=== PATIENT | female | born 2000 | race Hispanic/Latino ===

== ENCOUNTER → 2022-09-18 13:31 | Outpatient (CLI) | payer OTHER, SELFPAY ==
[2022-09-18 14:59] LABS: HCG Quantitative /Beta subunit 122610 mIU/mL
== END ==
PROVIDERS: PCP Student in an Organized Health Care Education/Training Program; Referring Provider Obstetrics & Gynecology; Visit Provider Obstetrics & Gynecology
DX: O20.9 Hemorrhage in early pregnancy, unspecified (principal)
CPT/HCPCS: 36415; 84702

== ENCOUNTER → 2022-10-02 14:53 | Outpatient (CLI) | payer OTHER, SELFPAY ==
[2022-10-02 22:13] LABS: Urine N gonorrhoeae NOT DETECTED
[2022-10-02 22:16] LABS: Urine Chlamydia NOT DETECTED
== END ==
PROVIDERS: PCP Student in an Organized Health Care Education/Training Program; Visit Provider Obstetrics & Gynecology
DX: Z34.01 Encounter for supervision of normal first pregnancy, first trimester (principal); Z3A.09 9 weeks gestation of pregnancy
CPT/HCPCS: 87491; 87591

== ENCOUNTER → 2022-10-02 15:13 | Outpatient (CLI) | payer OTHER, SELFPAY ==
[2022-10-02 16:10] LABS: Add Manual Diff / Slide Review NO; Basophils Absolute Auto 0 /uL (0-100); Basophils Percent Auto 0.4 % (0-2); Eosinophils Absolute Auto 100 /uL (0-450); Eosinophils Percent Auto 1.2 % (2-4); Hematocrit 39.5 % (36-46); Hemoglobin 13.6 g/dL (12.0-16.0); Lymphocytes Absolute Auto 1200 /uL (1100-4500); Lymphocytes Percent Auto 20.7 % (25-40); Mean Corpuscular HGB Conc 34.5 % (30-36); Mean Corpuscular Hemoglobin 30.3 PG (26-34); Mean Corpuscular Volume 87.8 fL (80-100); Monocytes Absolute Auto 500 /uL (0-900); Monocytes Percent Auto 8.2 % (3-14); Neutrophils Absolute Auto 4000 /uL (1500-7000); Neutrophils Percent Auto 69.5 % (50-75); Platelet Count 234 X10^3/uL (150-400); Red Cell Distribution Width 12.5 % (11.6-14.8); White Blood Cell Count 5.7 X10^3/uL (4.5-11.0)
[2022-10-02 17:11] LABS: HCG Quantitative /Beta subunit 105490 mIU/mL
[2022-10-02 21:38] LABS: Hepatitis B Surface Antigen NEGATIVE s/c (NEGATIVE); Rubella Antibody IgG 12.4 IU/mL (>15)
[2022-10-02 21:59] LABS: HIV 1 & 2 Ab/Ag 4th Gen Combo NEGATIVE (NEGATIVE); Hep C Virus Ab w/Reflex Quant NEGATIVE s/c (NEGATIVE)
[2022-10-03 09:38] LABS: Varicella IgG Antibody <135 index (Immune >165)
[2022-10-04 11:09] LABS: RPR Screen Non Reactive (Non Reactive)
== END ==
PROVIDERS: PCP Student in an Organized Health Care Education/Training Program; Referring Provider Obstetrics & Gynecology; Visit Provider Obstetrics & Gynecology
DX: O20.9 Hemorrhage in early pregnancy, unspecified (principal); Z3A.09 9 weeks gestation of pregnancy
CPT/HCPCS: 36415; 80055; 84702; 86787; 86803; 86850; 86900; 86901; 87086; 87389; 87491; 87591

== ENCOUNTER → 2022-11-27 15:29 | Outpatient (CLI) | payer OTHER, SELFPAY ==
[2022-11-29 20:59] LABS: AFP Value 58.3 ng/mL (.); Gestational Age Ultrasound (.); Insulin Dep Diabetes No (.); OSBR Risk 1IN 2047 (.); Results Report (.); Test Results *Screen Negative* (.)
== END ==
PROVIDERS: PCP Student in an Organized Health Care Education/Training Program; Referring Provider Obstetrics & Gynecology; Visit Provider Obstetrics & Gynecology
DX: O20.9 Hemorrhage in early pregnancy, unspecified (principal); Z34.01 Encounter for supervision of normal first pregnancy, first trimester
CPT/HCPCS: 36415; 82105

== ENCOUNTER → 2022-12-13 13:59 | Outpatient (CLI) | payer OTHER, SELFPAY ==
--- NOTE | 2022-12-13 14:00 | DI.US.S_ITS ---
PROCEDURE: US OB >= 14 WEEKS FETUS INDICATIONS: ANATOMY OUTSIDE/PRIOR DATING DATA: Last menstrual period (LMP): July 26, 2022. LMP-based estimated date of delivery (ESTRELLITA): May 02, 2023. First dating scan (date and location): October 02, 2022. Estimated date of delivery (ESTRELLITA) from first dating scan: May 02, 2023 TECHNIQUE: Real-time scanning was performed of the fetus, with image documentation and biometric measurements. Endovaginal scanning: Not performed COMPARISON: None. FINDINGS: General: A single living intrauterine gestation is present. Presentation: Vertex Placenta: Placental position is posterior , without previa. Amniotic fluid index: 11.1 cm, normal range is 5-24 cm. Single deepest vertical pocket is 3.4 cm. heart rate: 1.49 beats per minute. Maternal cervical canal: 4.3 cm long. Normal lower limit is 2.5 cm. biometrics: Biparietal diameter: 4.6 cm, 20 weeks, 0 days Head circumference: 17.0 cm, 19 weeks, 4 days Abdominal circumference: 14.7 cm, 20 weeks, 0 days Femur length: 3.2 cm, 19 weeks, 6 days Clinically estimated gestational age: 20 weeks, 0 days Composite gestational age from present scan: 19 weeks, 6 days Anatomic survey: Neuro: Ventricles are non-dilated at less than 10 mm. Cisterna magna is normal at 3-11 mm. Cerebellum is normal in size and morphology. Nuchal skin fold: Normal at less than 6 mm between 14-21 weeks gestational age. Face: Nose and lips, facial profile are not visualized. Spine: No evidence for spina bifida. Heart: 4-chambered heart and ventricular outflow tracts are poorly characterized. Diaphragm: Diaphragm is intact. Stomach: Left-sided stomach is present. Kidneys: No hydronephrosis. Normal is less than 5 mm in 2nd trimester, less than 7 mm in 3rd trimester. Cord: 3-vessel cord has orthotopic insertion. Bladder: Normal in size. Extremities: All 4 extremities identified. IMPRESSION: 1. Single live intrauterine gestation with a composite gestational age of 19 weeks, 6 days which is concordant with dates by LMP. 2. No anatomic sonographic abnormalities where visualized. The profile, palate, nose, lips, heart, and ventricular outflow tacks were not well visualized. Short interval follow-up recommended. We strive to produce accurate, complete, and clear reports of imaging services. To assist us in improving patient care, this report was composed using standard report templates and voice recognition software. Therefore, it may contain abnormal punctuation, insertions and/or omissions. Occasional wrong-word or sound-alike substitutions may occur. Though we review the report and make efforts to correct it, we do recommend that the report be read carefully in proper context to recognize any text inaccuracies. Dictated by: Rochelle Tucker M.D. on 12/13/2022 at 15:56 Approved by: Rochelle Tucker M.D. on 12/13/2022 at 15:59
== END ==
PROVIDERS: PCP Student in an Organized Health Care Education/Training Program; Referring Provider Obstetrics & Gynecology; Visit Provider Obstetrics & Gynecology
DX: Z34.02 Encounter for supervision of normal first pregnancy, second trimester (principal); Z3A.19 19 weeks gestation of pregnancy
CPT/HCPCS: 76811

== ENCOUNTER → 2022-12-21 16:57 | Outpatient (CLI) | payer OTHER, SELFPAY ==
--- NOTE | 2022-12-21 16:58 | DI.US.S_ITS ---
PROCEDURE: US OB FOLLOW UP INDICATIONS: FOLLOW UP ANATOMY OUTSIDE/PRIOR DATING DATA: Last menstrual period (LMP): 07/26/2022. LMP-based estimated date of delivery (ESTRELLITA): 05/02/2023. First dating scan (date and location): 10/02/2022. Estimated date of delivery (ESTRELLITA) from first dating scan: 05/02/2023. TECHNIQUE: Real-time scanning was performed of the fetus, with image documentation. Endovaginal scanning: Not performed COMPARISON: [facility], OB >= 14 WEEKS FETUS, 12/13/2022, 14:09. FINDINGS: A single living intrauterine gestation is present. Presentation: Vertex. Placenta: Placental position is posterior, without previa. Amniotic fluid index: 12.0 cm, normal range is 5-24 cm. Single deepest vertical pocket is 3.6 cm. heart rate: 155 beats per minute. Maternal cervical canal: 5.4 cm long. Normal lower limit is 2.5 cm. estimated gestational age: 21 weeks 1 day profile, nose/lips, four-chamber cardiac view, and right and left ventricular outflow tracts visualized and appear within normal limits. IMPRESSION: 1. Single living intrauterine . 2. profile, nose/lips, four-chamber cardiac view, and right and left ventricular outflow tracts visualized and appear within normal limits. Dictated by: Marcos Roa M.D. on 12/23/2022 at 13:11 Approved by: Marcos Roa M.D. on 12/23/2022 at 13:17
== END ==
PROVIDERS: PCP Student in an Organized Health Care Education/Training Program; Referring Provider Obstetrics & Gynecology; Visit Provider Obstetrics & Gynecology
DX: Z36.2 Encounter for other antenatal screening follow-up (principal); Z3A.21 21 weeks gestation of pregnancy
CPT/HCPCS: 76816

== ENCOUNTER → 2023-02-07 07:34 | Outpatient (CLI) | payer OTHER, SELFPAY ==
[2023-02-07 09:33] LABS: Hematocrit 35.7 % (36-46); Hemoglobin 12.4 g/dL (12.0-16.0)
[2023-02-07 09:58] LABS: GTT (PREG) 1 Hour PP 50gm Dose 135 mg/dL (76-139)
== END ==
PROVIDERS: Specialist; PCP Student in an Organized Health Care Education/Training Program; Referring Provider Obstetrics & Gynecology; Visit Provider Obstetrics & Gynecology
DX: Z34.02 Encounter for supervision of normal first pregnancy, second trimester (principal); Z3A.26 26 weeks gestation of pregnancy
CPT/HCPCS: 36415; 82950; 85014; 85018

== ENCOUNTER 2023-03-25 18:22 | Outpatient (CLI) | payer OTHER, SELFPAY | END 2023-03-25 20:11 | disposition home or self-care (01) | LOC: LABOR 19:59 → OB 04-02 06:49 | PROVIDERS: PCP Student in an Organized Health Care Education/Training Program; Referring Provider Obstetrics & Gynecology; Visit Provider Obstetrics & Gynecology | DX: Z36.9 Encounter for antenatal screening, unspecified (principal) | CPT/HCPCS: 59025; G0378; G0379 ==

== ENCOUNTER → 2023-04-05 16:46 | Outpatient (CLI) | payer OTHER, SELFPAY ==
[2023-04-06 13:55] LABS: Strep Grp B PCR NEG for Grp B Strep
== END ==
PROVIDERS: PCP Student in an Organized Health Care Education/Training Program; Visit Provider Obstetrics & Gynecology
DX: Z34.83 Encounter for supervision of other normal pregnancy, third trimester (principal); Z3A.36 36 weeks gestation of pregnancy
CPT/HCPCS: 87653

== ENCOUNTER 2023-05-02 18:33 | Inpatient (IN) | payer OTHER, SELFPAY ==
--- NOTE | 2023-05-02 21:02 | PM.OBTRLD ---
Visit Information Visit Information Date of evaluation: 05/02/23 On-call OB Provider: Carri Adair Reason for Evaluation: Yes rule out labor Vital Signs Vital Signs: BP 118/70, P61, T 36.5 PFSH Medical History (Updated 05/03/23 @ 03:24 by Carri Adair MD) Acne Surgical History (Updated 10/05/22 @ 21:49 by Raquel Gil) Anesthesia History of cholecystectomy (~2020) Family History (Updated 09/25/22 @ 15:39 by Antonietta Goznalez RN) Father Diabetes mellitus Mother hemorrhage Hx of cholecystectomy Social History marital status: number of children: 0 household members: spouse lives independently: Yes caregiver/support person: Yes housing: condominium ([facility]) pets and animals: Yes (dog) education level: college (some college) occupational status: employed (active duty) current occupational exposures/hazards: No (not while ) special fan needs: No travel history: recent ([place]) seatbelt use: always water heater temp set < 120 deg: No working smoke detector in home: Yes fire extinguisher in home: Yes carbon monox detector in home: Yes firearms in home: No do you feel safe at home: Yes Smoking Status: Never smoker second hand exposure: Yes ( vapes) alcohol intake: former (occasionally when not ) substance use type: does not use during the past year weight has: remained stable well-balanced diet: about half the time daily servings fruits/ve-4 caffeine: No Type(s) of exercise: walking, aerobic and bicycling (stationary bike) Review of Systems Review of Systems Narrative: pt. c/o cramping, GFM, no leakage of fluid, no bleeding except just on arrival with mucous plug Objective Labs 05/02/23 22:15 Evaluation Evaluation Baseline heart rate: 130 Variability: Moderate (11-25) monitor accelerations: Present Monitor Decelerations: Absent Contraction Frequency (minutes): 8 Uterine Contraction Intensity: Mild Category of Tracing: Reactive Status: Category l Cervical dilation (cm): 1 Cervical effacement (%): 75 station: -1 Diagnosis, Plan/Disposition Final Diagnosis (1) 40 weeks gestation of : Status: Acute (2) Uterine contractions during : Status: Acute Plan/Disposition Plan: patient to walk for 1 hour and return for evaluation to determine if in active labor.
[2023-05-02 22:24] LABS: Add Manual Diff / Slide Review NO; Basophils Absolute Auto 0 /uL (0-100); Basophils Percent Auto 0.2 % (0-2); Eosinophils Absolute Auto 0 /uL (0-450); Eosinophils Percent Auto 0.2 % (2-4); Hematocrit 38.8 % (36-46); Hemoglobin 13.4 g/dL (12.0-16.0); Lymphocytes Absolute Auto 900 /uL (1100-4500); Lymphocytes Percent Auto 7.4 % (25-40); Mean Corpuscular HGB Conc 34.4 % (30-36); Mean Corpuscular Hemoglobin 32.1 PG (26-34); Mean Corpuscular Volume 93.3 fL (80-100); Monocytes Absolute Auto 700 /uL (0-900); Monocytes Percent Auto 5.4 % (3-14); Neutrophils Absolute Auto 10700 /uL (1500-7000); Neutrophils Percent Auto 86.8 % (50-75); Platelet Count 195 X10^3/uL (150-400); Red Blood Cell Count 4.16 X10^6/uL (4.0-5.2); Red Cell Distribution Width 12.7 % (11.6-14.8); White Blood Cell Count 12.3 X10^3/uL (4.5-11.0)
--- NOTE | 2023-05-02 23:05 | P.PCN_ITS ---
<Statement entered by Karen Colindres MD - 05/03/23 18:58> Not my note Regional Block Pre-procedure Procedure: Continuous Lumbar Epidural for L&D Attending OB provider: Carri Adair PMH/ROS narrative: term labor, no complications. No significant PMH. h/o cholecystectomy. ASA Class: II Labs: Hct 38.8 % (36-46) 05/02/23 22:15 Plt Count 195 X10^3/uL (150-400) 05/02/23 22:15 Medications: Current Medications Generic Name Dose Route Start Last Admin Trade Name Freq PRN Reason Stop Dose Admin Carboprost Tromethamine 250 mcg 05/02/23 21:58 Carboprost 250 Mcg/Ml Ampul IM Q90M PRN Bleeding Diphenhydramine HCl 25 mg 05/02/23 23:03 Diphenhydramine 50 Mg/Ml Vial IV Q10M PRN Pruritis Fentanyl 100 mcg 05/02/23 21:58 Fentanyl 100 Mcg/2 Ml Inj IV Q1H PRN Pain, Severe (7-10) Oxytocin/Lactated Ringer's 30 unit in 500 mls @ 200 mls/hr 05/02/23 21:58 Oxytocin Premix IV CONT PRN Bleeding Protocol Tranexamic Acid 1,000 mg/ 100 mls @ 200 mls/hr 05/02/23 21:58 Sodium Chloride IV NOW PRN Bleeding Lactated Ringer's 1,000 mls @ 100 mls/hr 05/02/23 22:00 Lactated Ringers IV CONT CLARICE FENT 2MCG/ML BUPIV 0.125% EPI 200 mcg in 100 mls @ 6 mls/hr 05/02/23 23:15 Fentanyl/Bupiv/Ns 2mcg/Ml - 0.125% EPIDURAL CONT CLARICE Lidocaine HCl 20 ml 05/02/23 21:58 Lidocaine 1% 20 Ml INJ INTRA-OP PRN Post Delivery Methylergonovine Maleate 0.2 mg 05/02/23 21:58 Methylergonovine 0.2 Mg Tablet PO Q6HR PRN Heavy Bleeding Methylergonovine Maleate 0.2 mg 05/02/23 21:58 Methylergonovine 0.2 Mg/Ml Vial IM NOW PRN Bleeding Misoprostol 800 mcg 05/02/23 21:58 Misoprostol 200 Mcg Tablet WI NOW PRN Bleeding Misoprostol 400 mcg 05/02/23 21:58 Misoprostol 200 Mcg Tablet SL NOW PRN Bleeding Nalbuphine HCl 2.5 mg 05/02/23 23:03 Nalbuphine 20 Mg/Ml Ampul IV Q10M PRN Pruritis Naloxone HCl 0.2 mg 05/02/23 21:58 Naloxone 0.4 Mg/Ml Vial IV Q2MIN PRN Opiate Reversal Ondansetron HCl 4 mg 05/02/23 21:58 Ondansetron 4 Mg/2 Ml Inj IV Q4HR PRN Nausea And Vomiting Oxytocin 10 unit 05/02/23 21:58 Oxytocin 10 Unit/Ml Vial IM NOW PRN Bleeding Allergies: Allergies Allergy/AdvReac Type Severity Reaction Status Date / Time No Known Drug Allergies Allergy Unverified 04/26/23 16:03 Procedure Insertion date: 05/02/23 Insertion time: 23:25 Prep/Local: betadine x3 and 1% lidocaine Interspace: L3-4 Patient position: sitting Needle: 18 gauge SMASHsolar (CSE: 27g Pencan through Hustead, clear CSF, 1mL 0.25% PF bupiv) Loss of resistance with: saline SABRA at (cm): 6 Catheter placed at SKIN (cm): 12 Catheter in SPACE (cm): 6 Insertion: No CSF, No Blood, No Paresthesia with insertion, No Paresthesia with injection and No Test dose reaction Initial Medications TEST DOSE time: 23:27 TEST DOSE: 1.5% lidocaine with epinephrine 1:200k (mL): 3 BOLUS DOSE time: 23:37 BOLUS DOSE (mL): 4 BOLUS DOSE med: other (infusate) Infusion INFUSION: 0.125% bupivacaine and with fentanyl 2 mcg/mL Initial rate (mL/hr): 10 Post-procedure Anesthesia date START: 05/02/23 Anesthesia time START: 23:10 Anesthesia date END: 05/03/23 Anesthesia time END: 09:10 Post-procedure Anesthesia Assessment: Yes CV function: HR/BP stable, Yes Resp function: RR/sat/airway adequate, Yes Post-op hydration adequate, Yes Pain control adequate, Yes Nausea & vomiting absent, Yes Temperature > 36 C, Yes Mental status appropriate and No Anesthesia complications
--- NOTE | 2023-05-03 03:26 | P.HPOB_ITS ---
OB HPI Date/Time Date of admission: 05/02/23 Date Patient Seen: 05/02/23 Time Patient Seen: 19:00 History of Present Condition Chief complaint: in active labor : 1 Para: 0 Estimated Date of Delivery: 05/02/23 Estimated Gestational Age (weeks): 40 Narrative: Yaneth Ring is a 23 year old female admitted in active labor History of Present care: good care, initiated at week # (9), number of visits (12) and pounds weight gain (32) Dating criteria: LMP confirmed by 1st trimester US Ultrasounds: normal mid trimester US Obstetrical complications: none Medical complications: none Preadmission Labs Blood type: A (+) positive -: Antibody screen: negative, GBS status: negative, HBsAG: negative, HIV: negative and RPR/VDLR: negative -: Chlamydia screen: not detected and Gonorrhea screen: not detected -: Rubella: not immune and Varicella: not immune HCAB: negative Cell-free DNA: normal 1 hr GTT: 135 Evaluation Evaluation Baseline heart rate: 135 Variability: Moderate (11-25) monitor accelerations: Present Monitor Decelerations: Absent Contraction Frequency (minutes): 4 Uterine Contraction Intensity: Strong/Firm Category of Tracing: Reactive Status: Category l Dilation (cm): 3 Effacement (%): 75 station: -2 [facility] Medical History (Updated 05/03/23 @ 03:24 by Carri Adair MD) Acne Surgical History (Updated 10/05/22 @ 21:49 by Raquel Gil) Anesthesia History of cholecystectomy (~2020) Family History (Updated 09/25/22 @ 15:39 by Antonietta Gonzalez RN) Father Diabetes mellitus Mother hemorrhage Hx of cholecystectomy Social History marital status: number of children: 0 household members: spouse lives independently: Yes caregiver/support person: Yes housing: condominium (base housing [facility]) pets and animals: Yes (dog) education level: college (some college) occupational status: employed (active duty) current occupational exposures/hazards: No (not while ) special fan needs: No travel history: recent ([place]) seatbelt use: always water heater temp set < 120 deg: No working smoke detector in home: Yes fire extinguisher in home: Yes carbon monox detector in home: Yes firearms in home: No do you feel safe at home: Yes Smoking Status: Never smoker second hand exposure: Yes ( vapes) alcohol intake: former (occasionally when not ) substance use type: does not use during the past year weight has: remained stable well-balanced diet: about half the time daily servings fruits/ve-4 caffeine: No Type(s) of exercise: walking, aerobic and bicycling (stationary bike) Meds Home Medications and Allergies Home Medications Medication Instructions Recorded Confirmed Type prenat.vits,ted,tvy-yqeg-ddzew 1 tab PO DAILY #90 tabs 09/17/22 04/26/23 Rx Allergies Allergy/AdvReac Type Severity Reaction Status Date / Time No Known Drug Allergies Allergy Unverified 04/26/23 16:03 Review of Systems Review of Systems Narrative: Patient began having increasing cramping throughout the day. No leakage of fluid. Good movement. On arrival to the hospital she passed what she thought was a mucus plug with a small amount of blood. OB Exam Vital signs Blood Pressure: 118/70 Pulse Rate: 81 Temperature: 36.1 F Narrative Exam Narrative: HEENT exam within normal limits. Lungs are clear to auscultation percussion. No thyromegaly. Heart is regular rate and rhythm no S3-S4 murmurs. Abdomen is gravid. Fetus is vertex. Extremities without edema and nontender. Objective Labs 05/02/23 22:15 Labs: Laboratory Results - last 24 hr 05/02/23 22:15 WBC 12.3 H RBC 4.16 Hgb 13.4 Hct 38.8 MCV 93.3 MCH 32.1 MCHC 34.4 RDW 12.7 Plt Count 195 Neut % (Auto) 86.8 H Lymph % (Auto) 7.4 L Luna % (Auto) 5.4 Eos % (Auto) 0.2 L Baso % (Auto) 0.2 Neut # (Auto) 82923 H Lymph # (Auto) 900 L Luna # (Auto) 700 Eos # (Auto) 0 Baso # (Auto) 0 Blood Type A Positive Antibody Screen Negative Assessment and Plan Assessment and Plan Assessment and Plan narrative: 40 week uncomplicated gestation in active labor. Admit. Patient requesting epidural. Anticipate . Time Spent with Patient Total time spent with greater than 50% in coordination of care (as documented) at patient's floor/unit and/or counseling patient:: 15-24 minutes
[2023-05-03] MEDS: OXYTOCIN PREMIX 30 UNIT/500 ML PLAST..BAG IV (03:50)
[2023-05-03] MEDS: FENT 2MCG/ML BUPIV 0.125% EPI 200 MCG/100 ML PLAST..BAG 6 MCG EPIDURAL (06:17)
[2023-05-03 07:42] VITALS: BP 118/70; PULSE 81; TEMP 2.3; TEMP 36.1
--- NOTE | 2023-05-03 09:21 | PM.OBPRVD ---
Labor & Delivery Delivery date: 05/03/23 Intrapartal Events: None Delivery monitor: external FHT Route of delivery: L&D Laceration Description: Perineal - 1st Degree and Labial Delivery repair: vicryl Quantitative Blood Loss: 250 Anesthesia Type: Epidural Complications: none Narrative: The patient progressed to C/C/+3 with pitocin augmentation and epidural anesthesia. After approximately 5 sets of maternal pushing efforts, the delivered in OA position and restituted ROT. Nuchal cord x1 was noted and reduced. The anterior shoulder delivered with gentle downward pressure, and the posterior shoulder and remainder of the body delivered with ease. The cord was doubly clamped and cut after a 60sec delay with the placed on maternal abdomen. The placenta delivered spontaneously and was intact with a 3-vessel cord. The fundus was noted to be firm with bimanual massage and pitocin. Inspection of the cervix, vagina, and perineum was notable for a right labial laceration and a small 1st degree perineal laceration. Repair was performed using 4-0 Vicryl in a running, unlocked fashion for the labia, and a single [id number] suture of 3-0 vicryl was used for the perineum. At the end of the repair, all tissues noted to be hemostatic. All sponges were removed from the vagina, and instrument/lap counts were correct. The patient tolerated delivery well and remained in the labor room with the infant at the bedside. [place] Baby 1: gender: Female score (1 min): 8 score (5 min): 10 weight: 7 lb 6.344 oz (3355g) Plan for aftercare: Routine care
[2023-05-03] MEDS: IBUPROFEN 600 MG TABLET PO (18:01)
[2023-05-04] MEDS: IBUPROFEN 600 MG TABLET PO ×3 (00:11→12:30)
[2023-05-04] MEDS: ACETAMINOPHEN 325 MG TABLET 650 MG PO ×2 (05:39→12:31)
--- NOTE | 2023-05-04 08:15 | PM.OBDS.1 ---
Discharge Providers Provider Date of admission: 05/02/23 18:33 Discharge Date: 05/04/23 Primary care physician: Jeb Zhou Consults: 05/02/23 21:59 Consult to Anesthesiology Urgent Comment: Consulting Provider: Anesthesiologist Reason for consultation: Epidural 05/04/23 09:19 Consult to Operator Assistant I Cementing Routine Comment: Discharge provider: Armida Gutiérrez DO Summary Hospital Course Date Patient Seen: 05/04/23 Time Patient Seen: 08:16 Diagnoses: Term gestation at 40+1wks Spontaneous vaginal delivery Hospital Course: Hospital course: 23yo [id number] admitted at 40+1wks in active labor. She progressed to an uncomplicated vaginal delivery. Her delivery was productive of a viable female . Her course was unremarkable. On day #1, she was ambulating, tolerating regular diet, voiding spontaneously with minimal lochia. Her pain was well controlled with oral medications, thus she was discharged to home on post-op day #1. Peripartum Data Delivery Method: Natural Vaginal Laceration Description: Perineal - 1st Degree and Labial Procedures: External monitoring Epidural anesthesia Pitocin augmentation Spontaneous vaginal delivery Obstetrical laceration repair complications: none Discharge Diagnosis (1) 40 weeks gestation of : Status: Acute (2) Uterine contractions during : Status: Acute Status at Discharge Cognitive/behavioral status at discharge: oriented Functional status at discharge: independent ambulation Overall status at discharge: patient is back to baseline Time Spent with Patient Time attestation: Total time spent providing and/or coordinating discharge services: Time spent: Less than 30 minutes Objective Labs 05/02/23 22:15 Exam Vital Signs (past 8 hours): vitals reviewed in OBIX, within normal parameters Const General: cooperative, healthy appearing, comfortable and No acute distress Resp Effort & Inspection: normal respiratory effort GI Inspection: normal to inspection Other: fundus firm and nontender at U-2 Skin General: no rashes or lesions noted Neuro General: patient alert and patient awake Extrem General: normal to inspection, no pedal edema and no calf tenderness Psych Mood: congruent mood Affect: normal affect Discharge Plan Discharge Plan Patient Disposition: Home Provider Discharge Comment: Take ibuprofen 600 mg every 6 hours and acetaminophen 650 mg every 6 hours as needed for pain. Avoid placing anything in the vagina for 6 weeks. Slowly resume your normal activities as tolerated. Discharge orders & Medications Prescriptions: Continued prenat.vits,ted,etl-surn-pkexb Tablet 1 tab PO DAILY Qty: 90 3RF Follow up/Referrals: Kandi Scott MD [Physician] - ( Appt w/ Dr. Scott: June 13 @ 1:30pm) Diet/Activity/Treatments Diet: Diet as Tolerated Skin/Wound/Dressing Care Report to your healthcare provider any signs of infection, such as:: chills, fever, increased pain, unusual drainage and unusual redness Visit Report/Discharge Packet Instructions: DI for Labor and Delivery, Vaginal Stand Alone Forms: Discharge: Care, Patient Portal/API, Stroke Signs & Symptoms Discharge Data Primary Care Provider: Jeb Zhou
[2023-05-04] MEDS: DOCUSATE 100 MG CAPSULE PO (09:35)
[2023-05-04] MEDS: MEASLES,MUMPS,RUBELLA VACC/PF 0.5 ML VIAL SUBCUT (09:35)
[2023-05-04 11:26] VITALS: BP 96/60; PULSE 75; RESP 14; TEMP 36.4
== END 2023-05-04 12:35 | disposition home or self-care (01) | DRG 807 ==
PROVIDERS: Admitting Provider Specialist; PCP Student in an Organized Health Care Education/Training Program; Referring Provider Specialist; Visit Provider Specialist
DX: O70.0 First degree perineal laceration during delivery (principal); Z37.0 Single live birth; Z3A.40 40 weeks gestation of pregnancy
CPT/HCPCS: 36415; 59050; 59400; 59409; 85025; 86850; 86900; 86901; G0379; J2590

== ENCOUNTER → 2024-06-02 08:00 | Outpatient (CLI) | payer OTHER, SELFPAY ==
[2024-06-02 10:21] LABS: Glucose 1 Hour Gest 147 mg/dL (76-180)
[2024-06-02 10:50] LABS: Glucose 2 Hour Gest 159 mg/dL (76-155)
[2024-06-02 11:19] LABS: Glucose Tol Interp,Gestational INTERPRETATION
[2024-06-02 12:15] LABS: Glucose 3 Hour Gest 120 mg/dL (76-140)
[2024-06-02 14:19] LABS: Glucose Fasting Gestational 80 mg/dL (76-95)
== END ==
PROVIDERS: Referring Provider Obstetrics & Gynecology; Visit Provider Obstetrics & Gynecology
DX: O99.810 Abnormal glucose complicating pregnancy (principal)
CPT/HCPCS: 36415; 82951; 82952

== ENCOUNTER → 2024-07-30 10:00 | Outpatient (CLI) | payer OTHER, SELFPAY ==
[2024-07-31 10:34] LABS: Strep Grp B PCR NEG for Grp B Strep
== END ==
LOC: LAB 10:01
PROVIDERS: Visit Provider Specialist
DX: Z34.93 Encounter for supervision of normal pregnancy, unspecified, third trimester (principal); Z3A.36 36 weeks gestation of pregnancy
CPT/HCPCS: 87653

== ENCOUNTER 2024-08-19 00:45 | Inpatient (IN) | payer OTHER, SELFPAY ==
[2024-08-19 01:19] VITALS: BP 125/60
[2024-08-19 01:40] LABS: Add Manual Diff / Slide Review NO; Basophils Absolute Auto 100 /uL (0-100); Basophils Percent Auto 0.8 % (0-2); Eosinophils Absolute Auto 100 /uL (0-450); Eosinophils Percent Auto 0.6 % (2-4); Hematocrit 36.5 % (36-46); Hemoglobin 12.7 g/dL (12.0-16.0); Lymphocytes Absolute Auto 1300 /uL (1100-4500); Mean Corpuscular HGB Conc 34.8 % (30-36); Mean Corpuscular Hemoglobin 31.5 PG (26-34); Mean Corpuscular Volume 90.4 fL (80-100); Monocytes Absolute Auto 700 /uL (0-900); Monocytes Percent Auto 8.3 % (3-14); Neutrophils Absolute Auto 6300 /uL (1500-7000); Neutrophils Percent Auto 75.3 % (50-75); Platelet Count 184 X10^3/uL (150-400); Red Blood Cell Count 4.04 X10^6/uL (4.0-5.2); Red Cell Distribution Width 13.5 % (11.6-14.8); White Blood Cell Count 8.4 X10^3/uL (4.5-11.0)
[2024-08-19] MEDS: LACTATED RINGERS 1,000 ML 100 ML IV ×2 (02:45)
--- NOTE | 2024-08-19 02:49 | PM.AN.REGBLK ---
Regional Block Pre-procedure PMH/ROS narrative: active labor normal PSH/Anesthesia history narrative: epidural x 1 no issues ASA Class: II Labs: Hct 36.5 % (36-46) 08/19/24 01:25 Plt Count 184 X10^3/uL (150-400) 08/19/24 01:25 Medications: Current Medications Generic Name Dose Route Start Last Admin Trade Name Freq PRN Reason Stop Dose Admin Carboprost Tromethamine 250 mcg 08/19/24 01:28 Carboprost 250 Mcg/Ml Ampul IM Q90M PRN Bleeding Oxytocin/Lactated Ringer's 30 unit in 500 mls @ 200 mls/hr 08/19/24 01:28 Oxytocin Premix IV CONT PRN Bleeding Protocol Tranexamic Acid 1,000 mg/ 100 mls @ 600 mls/hr 08/19/24 01:28 Sodium Chloride IV NOW PRN Bleeding Lactated Ringer's 1,000 mls @ 100 mls/hr 08/19/24 01:30 08/19/24 02:45 Lactated Ringers IV 08/19/24 11:29 100 mls/hr CONT CLARICE Administration Lidocaine HCl 20 ml 08/19/24 01:28 Lidocaine 1% 20 Ml INJ INTRA-OP PRN Post Delivery Methylergonovine Maleate 0.2 mg 08/19/24 01:28 Methylergonovine 0.2 Mg Tablet PO Q6HR PRN Heavy Bleeding Methylergonovine Maleate 0.2 mg 08/19/24 01:28 Methylergonovine 0.2 Mg/Ml Vial IM NOW PRN Bleeding Mineral Oil 30 ml 08/19/24 01:28 Mineral Oil 30 Ml Udc TOP PRN PRN Version Misoprostol 800 mcg 08/19/24 01:28 Misoprostol 200 Mcg Tablet OH NOW PRN Bleeding Misoprostol 400 mcg 08/19/24 01:28 Misoprostol 200 Mcg Tablet SL NOW PRN Bleeding Naloxone HCl 0.2 mg 08/19/24 01:28 Naloxone 0.4 Mg/Ml Vial IV Q2MIN PRN Opiate Reversal Oxytocin 10 unit 08/19/24 01:28 Oxytocin 10 Unit/Ml Vial IM NOW PRN Bleeding Allergies: Allergies Allergy/AdvReac Type Severity Reaction Status Date / Time No Known Drug Allergies Allergy Unverified 08/13/24 10:49 --: pt in sitting position. drap eand prep with sterile technique. v/s/s. l3 l4 interspace indentified. lido 1% 3 cc skin wheel. jhonny introduced. SABRA with saline. 27 g quentin needle through. CSF + heme -, no paresthesias. quentin removed. catheter threaded. Procedure Insertion date: 08/19/24 Insertion time: 02:27 Prep/Local: betadine x3 (chloraprep) and 1% lidocaine Interspace: l 3 l 4 Patient position: sitting Needle: 18 gauge [place] Loss of resistance with: saline SABRA at (cm): 6 Catheter placed at SKIN (cm): 15 Sensory level: t8 Insertion: No CSF, No Blood, No Paresthesia with insertion, No Paresthesia with injection and No Test dose reaction Initial Medications TEST DOSE time: :28 TEST DOSE: 1.5% lidocaine with epinephrine 1:200k (mL): 3 BOLUS DOSE time: 02:35 BOLUS DOSE (mL): 4 BOLUS DOSE med: other (infusate) Infusion INFUSION: 0.125% bupivacaine and with fentanyl 2 mcg/mL Initial rate (mL/hr): 10 Post-procedure Anesthesia date START: 08/19/24 Anesthesia time START: 02:15 Anesthesia date END: 08/19/24 Anesthesia time END: 07:07 Post-procedure Anesthesia Assessment: Yes CV function: HR/BP stable, Yes Resp function: RR/sat/airway adequate, Yes Post-op hydration adequate, Yes Pain control adequate, Yes Nausea & vomiting absent, Yes Temperature > 36 C, Yes Mental status appropriate and Yes Anesthesia complications
--- NOTE | 2024-08-19 06:41 | PM.OBHP.IH.1 ---
OB HPI Date/Time Date of admission: 08/19/24 Date Patient Seen: 08/19/24 Time Patient Seen: 06:41 History of Present Condition Chief complaint: IN LABOR ESTRELLITA Calculator Estimated Delivery Date Method Current WG Current Estimate 08/21/24 LMP (Certain) 39w 5d Estimated Gestational Age (weeks): 39+5 : 2 Para: 1 Narrative: Patient is a 24-year-old 2 para 1 at 39-,5/7 weeks gestation who presented in active labor. She received an epidural for pain management. She is now complete and +1. care: good care, initiated at week # (14), number of visits (1) and pounds weight gain (35) Dating criteria OB: LMP confirmed by 1st trimester US Ultrasounds: normal 1st trimester US and normal mid trimester US Obstetrical complications: none Medical complications OB: none Preadmission Labs Last OB Lab Results: Blood Type A Positive 08/19/24 01:25 Antibody Screen Negative 08/19/24 01:25 Hct 36.5 % (36-46) 08/19/24 01:25 Hgb 12.7 g/dL (12.0-16.0) 08/19/24 01:25 Hep Bs Antigen Negative s/c (NEGATIVE) 10/02/22 15:18 Hepatitis C Antibody Negative s/c (NEGATIVE) 10/02/22 15:18 Rubella Antibody 12.4 IU/mL (>15) L 10/02/22 15:18 VZV IgG Antibody <135 index (Immune >165) L 10/02/22 15:18 Glucose 1 Hr 50 gm 135 mg/dL (76-139) 02/07/23 09:06 Group B Strep (PCR) Neg for grp b strep 07/30/24 10:00 -: Chlamydia screen: negative, Gonorrhea screen: negative and Urine: negative -: PAP smear: Normal Genetic Screens: Quad screen: Normal External Labs -: Urine: negative Prior (ies) Past Pregnancies Del. Date GA/Weeks Labor Lgth Wt Sex Route Outcome Anesthesia Place Delv Breastfeed Preg Comp Name 05/03/23 40.1 2 7 lb 6.3 oz Female vaginal live - full term [facility] 8-9 months none [place] Evaluation Evaluation Baseline heart rate: 135 Variability: Moderate (11-25) monitor accelerations: Present Monitor Decelerations: Absent Contraction Frequency (minutes): 3 Uterine Contraction Intensity: Strong/Firm Status: Category l Dilation (cm): 10 Effacement (%): 100 station: +1 PFSH Medical History (Updated 06/30/24 @ 18:04 by Kandi Scott MD) Acne Surgical History (Updated 05/27/24 @ 13:04 by Antonietta Gonzalez, RN) [place] teeth extracted (~2021) Anesthesia History of cholecystectomy (~2020) Family History (Updated 09/25/22 @ 15:39 by Antonietta Gonzalez, RN) Father Diabetes mellitus Mother hemorrhage Hx of cholecystectomy Social History marital status: number of children: 1 household members: spouse and children lives independently: Yes caregiver/support person: Yes 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 travel history: recent (domestic only) seatbelt use: always water heater temp set < 120 deg: No working smoke detector in home: Yes fire extinguisher in home: Yes carbon monox detector in home: Yes firearms in home: No do you feel safe at home: Yes Smoking Status: Never smoker second hand exposure: No alcohol intake: former (rarely when not ) substance use type: does not use during the past year weight has: other ( ~8 months , not back to pre- wt) well-balanced diet: about half the time daily servings fruits/ve-4 caffeine: Yes (minimal) Type(s) of exercise: none Meds Home Medications and Allergies Home Medications Medication Instructions Recorded Confirmed Type prenat.vits,ted,eba-[id number] 1 tab PO DAILY #90 tabs 09/17/22 08/13/24 Rx Allergies Allergy/AdvReac Type Severity Reaction Status Date / Time No Known Drug Allergies Allergy Unverified 08/13/24 10:49 OB Exam Narrative Exam Narrative: Gen: Patient comfortable with epidural Objective Labs 08/19/24 01:25 Labs: Laboratory Results - last 24 hr 08/19/24 01:25 WBC 8.4 RBC 4.04 Hgb 12.7 Hct 36.5 MCV 90.4 MCH 31.5 MCHC 34.8 RDW 13.5 Plt Count 184 Neut % (Auto) 75.3 H Lymph % (Auto) 15.0 L [place] % (Auto) 8.3 Eos % (Auto) 0.6 L Baso % (Auto) 0.8 Neut # (Auto) 6300 Lymph # (Auto) 1300 [place] # (Auto) 700 Eos # (Auto) 100 Baso # (Auto) 100 Blood Type A Positive Antibody Screen Negative Assessment and Plan Assessment and Plan Assessment and Plan narrative: Assessment: 24 year old at 39+5 wks gest, in second stage GBS neg Plan: Expectant management to Time-Based Coding :: [TOTAL MINUTES] spent with patient and on the chart (including review of chart, obtaining history, exam, reviewing outside data, placing orders, documenting exam and treatment plan, and counseling patient) on [DATE].
[2024-08-19] MEDS: OXYTOCIN PREMIX 30 UNIT/500 ML PLAST..BAG 200 UNIT IV (06:55)
[2024-08-19] MEDS: LIDOCAINE 1% 20 ML INJ (06:55)
[2024-08-19] MEDS: DERMOPLAST SPRAY 20% 60 ML 1 SPRAY TOP (14:00)
[2024-08-19] MEDS: WITCH HAZEL/GLYCERIN PADS 1 EACH TOP (14:00)
[2024-08-19] MEDS: ACETAMINOPHEN 325 MG TABLET 650 MG PO (19:13)
--- NOTE | 2024-08-19 21:48 | P.PCNOB_ITS ---
Labor & Delivery Delivery date: 08/19/24 Delivery Time: 06:51 Intrapartal Events: None Cervical ripening method: none Induction method: none Delivery augmentation: rupture of membranes Delivery monitor: external FHT and external uterine Route of delivery: Episiotomy description: None L&D Laceration Description: Periurethral - 1st Degree (right) Delivery repair: chromic Quantitative Blood Loss: 252 Anesthesia Type: Epidural Complications: None Narrative: Patient complete and pushed with 3 contractions. At 0647, a live male infanct delivered spontaneously over an intact perineum. No nuchal cord. The remainder of the body delivered without difficulty and was placed on mom's abdomen. Pitocin was given in the IVF's. Cord bloods were obtained. The placenta delivered intact with a 3 Vessel cord at 0651. The fundus was massaged to firm. The perineum and vagina were inspected and a right periurethral laceration was noted. 7 cc of 1% lidocaine were injected. 4-0 chromic was used to repair in a running interlocking fashion. Hemostasis was achieved. Apgars 9 at 1 minute and 9 at 5 minutes. . Epidural analgesia. BW 7#14oz. QBL 252 cc. Mom and stable to recovery. [place] Baby 1: gender: Male Presentation: vertex Position: Left Occiput Anterior Placenta delivery description: Spontaneous Cord Vessel Description: 3 Vessels and Clamped/Cut score (1 min): 9 score (5 min): 9 weight: 7 lb 14 oz Plan for aftercare: Routine care
[2024-08-20] MEDS: ACETAMINOPHEN 325 MG TABLET 650 MG PO ×2 (01:40→07:05)
[2024-08-20 06:19] LABS: Hematocrit 29.8 % (36-46); Hemoglobin 10.5 g/dL (12.0-16.0)
[2024-08-20] MEDS: PRENATAL VIT,CALC/IRON/FOLIC 1 TABLET 1 TAB PO (10:41)
[2024-08-20] MEDS: IBUPROFEN 600 MG TABLET PO (10:41)
[2024-08-20] MEDS: DOCUSATE 100 MG CAPSULE PO (10:41)
[2024-08-20 12:04] VITALS: BP 114/71; PULSE 75; RESP 16; TEMP 36.8
== END 2024-08-20 12:02 | disposition home or self-care (01) | DRG 807 ==
PROVIDERS: Obstetrics & Gynecology; Admitting Provider Student in an Organized Health Care Education/Training Program; Referring Provider Student in an Organized Health Care Education/Training Program; Visit Provider Student in an Organized Health Care Education/Training Program
DX: O70.0 First degree perineal laceration during delivery (principal); Z37.0 Single live birth; Z3A.39 39 weeks gestation of pregnancy
CPT/HCPCS: 36415; 59050; 85014; 85018; 85025; 86850; 86900; 86901; G0379; J2590

== ENCOUNTER 2024-08-24 20:55 | Emergency (ER) | payer OTHER, SELFPAY ==
[2024-08-24 21:08] VITALS: BP 147/85; PULSE 100; RESP 14; TEMP 37.2; O2SAT 99; BMI 33.4
--- NOTE | 2024-08-24 21:47 | DI.US.S_ITS ---
PROCEDURE: US PELVIC COMPLETE INDICATIONS: 5 days post - abd pain TECHNIQUE: Real-time scanning was performed of the pelvic organs, with image documentation. Transabdominal only at in this patient. COMPARISON: [facility], US, US OB >= 14 WEEKS FETUS, 06/25/2024, 15:25. FINDINGS: Uterus: Uterus is anteverted and normal in size at 14.7 x 13.8 x 8 cm. The myometrium is heterogeneous. The endometrium measures 28 mm combined thickness. Thickened with increased vascularity. Hyperechoic material at the mid uterus. Small nodular area. Hypoechoic material at the cervix. Ovaries: The right ovary measures 3.4 x 2.5 x 1.2 cm, with a calculated ovarian volume of 5 cc. The left ovary measures 3.2 x 1.6 x 1.5 cm, with a calculated ovarian volume of 4 cc. The ovaries have a normal sonographic appearance. Less than 12 follicles can be seen in each ovary. No adnexal masses are seen. Other: No pathologic free abdominal or pelvic fluid. No significant postvoid residual. Scant debris. IMPRESSION: 1. Endometrium measures 28 mm in diameter. Thickened and heterogeneous. Findings most consistent with blood products and/or retained products of conception given a small nodular area. 2. No significant ovarian cysts. We strive to produce accurate, complete, and clear reports of imaging services. To assist us in improving patient care, this report was composed using standard report templates and voice recognition software. Therefore, it may contain abnormal punctuation, insertions and/or omissions. Occasional wrong-word or sound-alike substitutions may occur. Though we review the report and make efforts to correct it, we do recommend that the report be read carefully in proper context to recognize any text inaccuracies. Dictated by: Abraham Mitchell M.D. on 08/24/2024 at 23:38 Approved by: Abraham Mitchell M.D. on 08/24/2024 at 23:48
[2024-08-24 22:56] VITALS: BP 131/67; PULSE 89; O2SAT 100
[2024-08-24 23:00] VITALS: BP 130/68; PULSE 96; RESP 16; O2SAT 99
[2024-08-24 23:26] LABS: Add Manual Diff / Slide Review NO; Basophils Absolute Auto 0 /uL (0-100); Basophils Percent Auto 0.3 % (0-2); Eosinophils Absolute Auto 100 /uL (0-450); Hematocrit 33.9 % (36-46); Hemoglobin 11.5 g/dL (12.0-16.0); Lymphocytes Absolute Auto 900 /uL (1100-4500); Lymphocytes Percent Auto 11.3 % (25-40); Mean Corpuscular Hemoglobin 31.3 PG (26-34); Monocytes Absolute Auto 600 /uL (0-900); Monocytes Percent Auto 7.8 % (3-14); Neutrophils Absolute Auto 6200 /uL (1500-7000); Neutrophils Percent Auto 79.6 % (50-75); Platelet Count 222 X10^3/uL (150-400); Red Blood Cell Count 3.69 X10^6/uL (4.0-5.2); Red Cell Distribution Width 13.7 % (11.6-14.8); White Blood Cell Count 7.7 X10^3/uL (4.5-11.0)
[2024-08-24 23:30] VITALS: BP 122/68; PULSE 82; RESP 20; O2SAT 100
[2024-08-24 23:34] LABS: Bacteria Urine Many (>30); Culture Indicated Urine Specimen Cultured; RBC Urine 1-5/HPF (0-5/HPF); Squamous Epithelial Cell Urine 0-1 /HPF (0-5/HPF); Urine Volume 10mL (spun); WBC Urine 5-10/HPF (0-5/HPF)
--- NOTE | 2024-08-24 23:35 | ED_ITS ---
HPI - Abdominal Pain General Chief Complaint: Abdominal Pain Stated Complaint: abd px 5 days post Time Seen by Provider: 08/24/24 22:42 Source: patient Mode of arrival: Ambulatory History of Present Illness HPI narrative: Patient 24-year-old female, and delivered 5 days ago spontaneous vaginal delivery here presenting today with variety of symptoms. She does report some upper respiratory symptoms sore throat nasal congestion ear pain. Reports some mild fever as well. And some coughing. No significant shortness of breath. Also reports some mild abdominal pain and discomfort. Says she does have some vaginal bleeding but about 4 pass today does not feel like it is excessive. She was not passed out. No significant chest pain or palpitations. Related Data Previous Rx's Medication Instructions Recorded prenat.vits,ted,mmx-ftaz-euckq 1 tab PO DAILY #90 tabs 09/17/22 Allergies Allergy/AdvReac Type Severity Reaction Status Date / Time No Known Drug Allergies Allergy Unverified 08/13/24 10:49 Patient History Medical History Acne Surgical History [place] teeth extracted (~2021) Anesthesia History of cholecystectomy (~2020) Family History Father Diabetes mellitus Mother hemorrhage Hx of cholecystectomy Social History marital status: number of children: 1 household members: spouse and children lives independently: Yes caregiver/support person: Yes [facility] [place]) pets and animals: Yes (dog) education level: college (some college) occupational status: employed (active duty) current occupational exposures/hazards: No (not while ) Previous occupational history: ground crewman aircraft support, 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 travel history: recent (domestic only) seatbelt use: always water heater temp set < 120 deg: No working smoke detector in home: Yes fire extinguisher in home: Yes carbon monox detector in home: Yes firearms in home: No do you feel safe at home: Yes Smoking Status: Never smoker second hand exposure: No alcohol intake: former (rarely when not ) substance use type: does not use during the past year weight has: other ( ~8 months , not back to pre- wt) well-balanced diet: about half the time daily servings fruits/ve-4 caffeine: Yes (minimal) Type(s) of exercise: none Smoking Status: Never smoker Exam Initial Vital Signs Initial Vital Signs: Vital Signs Temperature 99.0 F 08/24/24 21:08 Pulse Rate 100 H 08/24/24 21:08 Respiratory Rate 14 08/24/24 21:08 Blood Pressure 147/85 H 08/24/24 21:08 Pulse Oximetry 99 08/24/24 21:08 Oxygen Delivery Method Room Air 08/24/24 21:08 GENERAL: Alert pleasant well-appearing 24-year-old female and in no acute distress. HEENT: Head atraumatic,EOMI, pupils reactive, face symmetric, moist mucous membranes CARDIOVASCULAR: Regular rate and rhythm without murmurs, rubs or gallops. RESPIRATORY: Breath sounds equal bilaterally, no wheezes rales or rhonchi. ABDOMEN: Soft, nontender. Normoactive bowel sounds all 4 quadrants. No guarding or rebound. No significant distention no peritoneal signs EXTREMITIES: Normal range of motion, no clubbing or edema. Neurovascularly intact NEUROLOGICAL: Alert and oriented x4.Normal gait and speech. Cranial nerves II through XII grossly intact. SKIN: Warm, dry, no laceration, no petechiae, no rashes or lesions. Course Orders Ordered: ED Orders 08/24/24 22:35 EKG-12 Lead Stat 08/24/24 22:44 Urine Culture Stat Urine Microscopic Stat 08/24/24 23:07 Complete Blood Count AUTO DIFF Stat Comprehensive Metabolic Panel Stat Lipase Stat Type and Screen Stat 08/25/24 00:49 Throat Culture Stat 08/25/24 00:50 Strep Grp A by PCR Rapid Stat Discontinued Medications Sodium Chloride (Normal Saline 0.9%) 1,000 mls @ 1,000 mls/hr IV BOLUS ONE Stop: 08/25/24 00:39 Last Infusion: 08/25/24 01:06 Dose: Infused Documented By: Admin: 08/24/24 23:59 Dose: 1,000 mls/hr Documented By: RANDAL Ondansetron HCl (Ondansetron 4 Mg/2 Ml Inj) 4 mg IV NOW PRN PRN Reason: Nausea And Vomiting Ondansetron HCl (Ondansetron 4 Mg Odt) 4 mg PO NOW PRN PRN Reason: Nausea And Vomiting Vital Signs Vital signs: Vital Signs - 8 hr 08/24/24 22:56 08/24/24 22:56 08/24/24 23:00 Pulse Rate 89 Respiratory Rate Blood Pressure 131/67 130/68 Pulse Oximetry 100 Oxygen Delivery Method 08/24/24 23:00 08/24/24 23:30 08/24/24 23:30 Pulse Rate 96 H 82 Respiratory Rate 16 20 Blood Pressure 122/68 Pulse Oximetry 99 100 Oxygen Delivery Method 08/25/24 00:00 08/25/24 00:00 08/25/24 00:30 Pulse Rate 93 H Respiratory Rate 18 Blood Pressure 129/72 122/67 Pulse Oximetry 100 Oxygen Delivery Method 08/25/24 00:30 08/25/24 01:00 08/25/24 01:00 Pulse Rate 82 87 Respiratory Rate 22 19 Blood Pressure 126/71 Pulse Oximetry 100 99 Oxygen Delivery Method 08/25/24 01:30 08/25/24 01:30 Pulse Rate 91 H Respiratory Rate 18 Blood Pressure 129/77 Pulse Oximetry 99 Oxygen Delivery Method Room Air MDM - Abdominal Pain Lab Data 08/24/24 23:07 08/24/24 23:07 Labs: Lab Results 08/24/24 08/24/24 08/25/24 Range/Units 22:44 23:07 00:50 WBC 7.7 (4.5-11.0) X10^3/uL RBC 3.69 L (4.0-5.2) X10^6/uL Hgb 11.5 L (12.0-16.0) g/dL Hct 33.9 L (36-46) % MCV 92.0 (80-100) fL MCH 31.3 (26-34) PG MCHC 34.0 (30-36) % RDW 13.7 (11.6-14.8) % Plt Count 222 (150-400) X10^3/uL Neut % (Auto) 79.6 H (50-75) % Lymph % (Auto) 11.3 L (25-40) % [place] % (Auto) 7.8 (3-14) % Eos % (Auto) 1.0 L (2-4) % Baso % (Auto) 0.3 (0-2) % Neut # (Auto) 6200 (1555-7900) /uL Lymph # (Auto) 900 L (1166-6062) /uL [place] # (Auto) 600 (0-900) /uL Eos # (Auto) 100 (0-450) /uL Baso # (Auto) 0 (0-100) /uL Sodium 138 (137-145) mmol/L Potassium 3.7 (3.4-5.1) mmol/L Chloride 108 H (98-107) mmol/L Carbon Dioxide 23 (22-32) mmol/L BUN 6 L (7-17) mg/dL Creatinine 0.51 L (0.52-1.04) mg/dL Estimated GFR > 60 (>60) mL/min BUN/Creatinine Ratio 11.8 (6-22) Glucose 104 H (70-99) mg/dL Calcium 8.6 (8.4-10.2) mg/dL Total Bilirubin 0.4 (0.2-1.3) mg/dL AST 40 H (14-36) IU/L ALT 32 (<35) IU/L Alkaline Phosphatase 105 (38-126) U/L Total Protein 7.6 (6.3-8.2) g/dL Albumin 3.5 (3.5-5.0) g/dL Globulin 4.1 (1.7-4.1) g/dL Albumin/Globulin Ratio 0.9 L (1.0-2.8) Lipase 77 (23-300) U/L Urine RBC 1-5/hpf (0-5/HPF) Urine WBC 5-10/hpf H (0-5/HPF) Ur Squamous Epith Cells 0-1 /hpf (0-5/HPF) Urine Bacteria Many (>30) H (None) Ur Culture Indicated? Specimen cultured Vol Urine Centrifuged 10ml (spun) Group A Strep (PCR) Negative (Negative) Blood Type A Positive Antibody Screen Negative Point of care testing: Point of Care Testing Test Results Negative Urine Dip Bedside Urine Glucose Negative Bedside Urine Bilirubin - Negative Bedside Urine Ketone - Negative Urine Specific [place] 1.015 Bedside Urine Occult Blood +++ Bedside Urine pH 6.5 Bedside Urine Protein +/- 15 Bedside Urine Urobilinogen - Negative Bedside Urine Nitrite - Negative Bedside Urine Leukocytes + 70 Esterase Imaging Data US ob: Radiologist's Impression: PROCEDURE: US PELVIC COMPLETE INDICATIONS: 5 days post - abd pain TECHNIQUE: Real-time scanning was performed of the pelvic organs, with image documentation. Transabdominal only at in this patient. COMPARISON: [facility], US, US OB >= 14 WEEKS FETUS, 06/25/2024, 15:25. FINDINGS: Uterus: Uterus is anteverted and normal in size at 14.7 x 13.8 x 8 cm. The myometrium is heterogeneous. The endometrium measures 28 mm combined thickness. Thickened with increased vascularity. Hyperechoic material at the mid uterus. Small nodular area. Hypoechoic material at the cervix. Ovaries: The right ovary measures 3.4 x 2.5 x 1.2 cm, with a calculated ovarian volume of 5 cc. The left ovary measures 3.2 x 1.6 x 1.5 cm, with a calculated ovarian volume of 4 cc. The ovaries have a normal sonographic appearance. Less than 12 follicles can be seen in each ovary. No adnexal masses are seen. Other: No pathologic free abdominal or pelvic fluid. No significant postvoid residual. Scant debris. IMPRESSION: 1. Endometrium measures 28 mm in diameter. Thickened and heterogeneous. Findings most consistent with blood products and/or retained products of conception given a small nodular area. 2. No significant ovarian cysts. We strive to produce accurate, complete, and clear reports of imaging services. To assist us in improving patient care, this report was composed using standard report templates and voice recognition software. Therefore, it may contain abnormal punctuation, insertions and/or omissions. Occasional wrong-word or sound-alike substitutions may occur. Though we review the report and make efforts to correct it, we do recommend that the report be read carefully in proper context to recognize any text inaccuracies. Dictated by: Abraham Mitchell M.D. on 08/24/2024 at 23:38 MDM Narrative Medical decision making narrative: MDM CC: Sore throat abdominal pain Complicating co-morbidities: Data collected from: Patient Medical records reviewed: Delivery note reviewed patient pushed 3 contractions male infant born at 6:47 a.m., placenta was delivered at 6:51 a.m. with a three-vessel cord she did have right periurethral laceration which was easily repaired Differential considered: Sepsis retained products respiratory infection viral Exam documented above, pertinent findings include: Alert well-appearing 24-year-old female, in mild abdominal pain no peritoneal signs not an acute abdomen pharynx is mildly erythematous with out uvula swelling or exudate lungs are clear Lab Test results independently reviewed as above. Pertinent findings: CBC WBC 7.7 hemoglobin 11.5 hematocrit 33.9 previously 10.5 and 29.8 Normal electrolytes BUN 6 creatinine 0.51 glucose 104 Imaging studies independently reviewed: Ultrasound concerning for retained products Consultations: Dr. Stacy, recommends calling Dr. Scott [id number] Dr. Scott, more likely blood products. Will call patient tomorrow Treatments: IV fluids Re-evaluations: Patient abdomen remained soft and nontender no peritoneal signs. Really complaining of some throat pain. Throat is mildly erythematous. No evidence of uvula swelling or airway compromise Discussion: Patient is a 24-year-old female 5 days presenting today with variety of symptoms. Having some upper respiratory like symptoms along with some abdominal pain. No excessive bleeding. Reports about 4 pads in a day. Some mild abdominal pain worse when she is coughing. Ultrasound does show blood products versus retained products of conception. She has no leukocytosis she was afebrile vitals are stable no anemia hemoglobin has not fact gone up from previously. Ob consulted we will follow up closely tomorrow in clinic. It strep is negative. Backup pending. Breath sounds are clear no significant cough Discharge Plan Departure Patient Disposition: Home Clinical Impression: Acute upper respiratory infection Instructions: DI for Viral Upper Respiratory Infection -- Adult Activity Restrictions/Additional Instructions: *You have been diagnosed with upper respiratory infection *What to do: At this time blood work is overall reassuring your strep is negative. Ultrasound does show some mild blood products. Dr. Scott will call you to follow-up closely tomorrow No need for antibiotics at this time Make sure you are drinking plenty of fluid *Continue to take medications as directed Tylenol or Motrin as needed for pain *Follow up with your primary care provider in 2-3 days or call [phone] Scott our office should call you tomorrow *Return to ER if you should have increased abdominal pain increased bleeding more than 2 pads in 1 hour dizzy lightheaded passing or any new, worsening or concerning symptoms Prescriptions: No Action prenat.vits,ted,gqb-gkgz-sjuyf Tablet 1 tab PO DAILY Qty: 90 3RF Referrals: Provider,Marylu HUDSON [Primary Care Provider] - Stand Alone Forms: Patient Portal/API/Survey
[2024-08-24 23:36] LABS: Alanine Aminotransferase 32 IU/L (<35); Albumin 3.5 g/dL (3.5-5.0); Albumin Globulin Ratio 0.9 (1.0-2.8); Alkaline Phosphatase 105 U/L (38-126); Aspartate Aminotransferase 40 IU/L (14-36); BUN Creatinine Ratio 11.8 (6-22); Bilirubin Total 0.4 mg/dL (0.2-1.3); Blood Urea Nitrogen 6 mg/dL (7-17); Calcium 8.6 mg/dL (8.4-10.2); Carbon Dioxide 23 mmol/L (22-32); Chloride 108 mmol/L (98-107); Estimated Glomerular Filt Rate > 60 mL/min (>60); Globulin 4.1 g/dL (1.7-4.1); Glucose 104 mg/dL (70-99); HEMOLYSIS 19 (0-50); Lipase 77 U/L (23-300); Potassium 3.7 mmol/L (3.4-5.1); Sodium 138 mmol/L (137-145); Total Protein 7.6 g/dL (6.3-8.2)
[2024-08-24] MEDS: SODIUM CHLORIDE 0.9% 1,000 ML 1000 ML IV (23:59)
[2024-08-25] VITALS: BP 129/72; PULSE 93; RESP 18; O2SAT 100
[2024-08-25 00:30] VITALS: BP 122/67; PULSE 82; RESP 22; O2SAT 100
[2024-08-25 01:00] VITALS: BP 126/71; PULSE 87; RESP 19; O2SAT 99
[2024-08-25 01:03] LABS: Strep Grp A by PCR Rapid Negative (Negative)
[2024-08-25 01:30] VITALS: BP 129/77; PULSE 91; RESP 18; O2SAT 99
== END 2024-08-25 01:47 | disposition home or self-care (01) ==
PROVIDERS: Emergency Provider Emergency Medicine
DX: J06.9 Acute upper respiratory infection, unspecified (principal); R50.9 Fever, unspecified; R05.9 Cough, unspecified; R10.9 Unspecified abdominal pain
CPT/HCPCS: 36415; 76856; 80053; 81003; 81015; 81025; 83690; 85025; 86850; 86900; 86901; 87070; 87086; 87651; 96360; 99284